=== PATIENT | male | born 1995 | race African-American/Black ===

== ENCOUNTER 2023-09-24 10:43 | Emergency (ER) | payer OTHER ==
[2023-09-24 10:51] VITALS: BP 105/58; PULSE 107; RESP 20; TEMP 99.9; BMI 22.9
[2023-09-24] MEDS ORDERED: ACETAMINOPHEN 500 MG TABLET (FP) PO ONE (11:34)
[2023-09-24] MEDS ORDERED: ACETAMINOPHEN 500 MG TABLET (FP) ONE (11:38)
[2023-09-24] MEDS ORDERED: PENICILLIN G BENZATHINE 1,200,000 UNIT/2 ML PFS IM ONE (13:20)
== END 2023-09-24 15:01 | disposition home or self-care (01) ==
LOC: JERFT 10:43
DX: J02.0 Streptococcal pharyngitis (principal); R00.0 Tachycardia, unspecified; R50.9 Fever, unspecified; M79.10 Myalgia, unspecified site; R09.81 Nasal congestion; Z20.822 Contact with and (suspected) exposure to COVID-19
CPT/HCPCS: 0241U-QW; 87651; 99284-25

== ENCOUNTER 2025-05-05 12:27 | Emergency (ER) | payer OTHER ==
[2025-05-05 12:44] VITALS: BP 130/64; PULSE 72; RESP 18; TEMP 98.1; BMI 28.1
[2025-05-05] MEDS: LORATADINE 10 MG TABLET PO ONE (13:14)
== END 2025-05-05 13:15 | disposition home or self-care (01) ==
LOC: JERFT 12:27 → JER 12:27 → JERFT 13:15
DX: J02.9 Acute pharyngitis, unspecified (principal); R09.3 Abnormal sputum
CPT/HCPCS: 99283-25